=== PATIENT | female | born 1950 | race Caucasian/White ===

== ENCOUNTER 2019-05-28 18:54 | Emergency (ER) | payer MEDICARE, OTHER, SELFPAY ==
[2019-05-28 18:55] VITALS: BP 161/76; PULSE 65; RESP 18; TEMP 36.3; O2SAT 94; BMI 26.3
--- NOTE | 2019-05-28 19:06 | RAD_ITS ---
STUDY: X-RAY - UNILATERAL RIBS ( RIGHT ) WITH CHEST REASON FOR EXAM: Female, 69 years old. Right-sided rib pain TECHNIQUE - RIBS: 4 view(s) of the ribs. TECHNIQUE - CHEST: Frontal view of the chest COMPARISON: None. FINDINGS - RIBS: There are no displaced rib fractures identified. FINDINGS - CHEST: The lungs are clear. There are no pleural effusions. There is no pneumothorax. The heart is normal in size. RAD/Ribs Uni Min 3V w/PA Chest IMPRESSION: RIBS: No displaced rib fracture identified. CHEST: Clear lungs. Electronically Signed: Niko Grey, at 19:48 EDT Tel , Service support ,
--- NOTE | 2019-05-28 19:07 | ED.DCSUM_ITS ---
- ER Visit Summary Date of Service: 05/28/19 Chief Complaint: Right rib pain status post fall History of Present Illness: The patient is a 69 F who was walking her dog when she tripped over the dog and fell onto her right hand side. She denies hitting her head. No LOC. Her pain is in the right rib area. Is worse with movement and with breathing. She took no medications for this at home. She has had multiple orthopedic surgeries, but denies any right shoulder, right wrist, right elbow pain. She has no pain in the right hip or right knee. Physical Examination: Vital signs reviewed. HEENT exam is atraumatic. Heart is regular rate and rhythm. Lungs are clear to auscultation. She has right rib tenderness diffusely. Her abdomen is soft and nontender. Back is nontender. Her extremities are all nontender to palpation. She has a right knee abrasion. GCS 15. Test Results: Right rib series reveals no evidence of any fractures Emergency Department Course and Treatment: Patient requested Tylenol for pain. X-rays are negative for fracture. She has rib contusions without fractures. Patient will be discharged with instructions to use Tylenol for pain as requested. She will ice and will follow up with her PCP. Treatment Plan: [] Disposition: Discharge Impression: Right rib contusion This note was generated with [employer] dictation software. It may contain incorrect words, spelling, and punctuation that were not noted in review of the chart prior to signing ED Disposition - Plan for ED Patient: Referrals: Sheila Gatica,Out of [Primary Care Provider] -
[2019-05-28] MEDS: Acetaminophen 500 MG Tablet 1000 MG PO (19:21)
--- NOTE | 2019-05-28 20:04 | DCINST.ED_ITS ---
ED Disposition - Plan for ED Patient: Disposition: Home or Assisted Living Instructions: Rib Contusion Referrals: [facility] Doctor,Out of [Primary Care Provider] -
[2019-05-28 20:11] VITALS: BP 158/75; PULSE 76; RESP 19; O2SAT 97
== END 2019-05-28 20:12 | disposition home or self-care (01) ==
PROVIDERS: Emergency Provider Emergency Medicine
DX: S20.211A Contusion of right front wall of thorax, initial encounter (principal); W01.0XXA Fall on same level from slipping, tripping and stumbling without subsequent striking against object, initial encounter; Y93.K1 Activity, walking an animal; I10 Essential (primary) hypertension; I48.91 Unspecified atrial fibrillation; E11.9 Type 2 diabetes mellitus without complications; J44.9 Chronic obstructive pulmonary disease, unspecified; Z79.84 Long term (current) use of oral hypoglycemic drugs; Z79.899 Other long term (current) drug therapy
CPT/HCPCS: 71101; 99283